=== PATIENT | female | born 1990 | race Caucasian/White ===

== ENCOUNTER 2018-06-26 11:12 | Emergency (ER) | payer SELFPAY ==
[~2018-06-26] VITALS: Ht 152.4 cm; Wt 87.1 kg
[2018-06-26 11:17] VITALS: BP 108/63
[2018-06-26 12:29] LABS: BASOPHILS # (AUTO) 0.1 K/uL (0.00-0.22); BASOPHILS % (AUTO) 0.6 % (0.0-2.0); EOSINOPHILS # (AUTO) 0.1 K/uL (0-0.4); EOSINOPHILS % (AUTO) 1.4 % (0.0-4.0); HEMATOCRIT 37.4 % (36-48); HEMOGLOBIN 12.6 g/dL (12.0-16.0); LYMPHOCYTES % (AUTO) 18.5 % (20.5-51.1); MEAN CORPUSCULAR HEMOGLOBIN 29 pg (27-31); MEAN CORPUSCULAR HGB CONC 34 g/dL (33-37); MEAN CORPUSCULAR VOLUME 86.8 fL (80-94); MONOCYTES # (AUTO) 0.6 K/uL (0.8-1.0); MONOCYTES % (AUTO) 5.8 % (1.7-9.3); NEUTROPHILS # (AUTO) 7.8 K/uL (1.8-7.7); NEUTROPHILS % (AUTO) 73.7 % (42.2-75.2); PLATELET COUNT (AUTO) 346 K/uL (140-450); RED CELL DISTRIBUTION WIDTH 13.7 % (11.6-13.7); WHITE BLOOD COUNT (AUTO) 10.6 K/uL (4.8-10.8)
[2018-06-26 12:39] LABS: ANION GAP 12.3 (8-16); CARBON DIOXIDE 25.6 mmol/L (21-32); CREATININE 0.6 mg/dL (0.6-1.3); POTASSIUM 3.9 mmol/L (3.5-5.1)
[2018-06-26 12:51] LABS: ALBUMIN 3.8 g/dL (3.4-5.0); TOTAL BILIRUBIN 0.5 mg/dL (0.0-1.0)
[2018-06-26 13:02] LABS: BILIRUBIN,URINE NEGATIVE (NEGATIVE); BLOOD, URINE 3+ (NEGATIVE); LEUKOCYTE ESTERASE ,URINE NEGATIVE (NEGATIVE); NITRITE, URINE NEGATIVE (NEGATIVE); UGLUCOSE NEGATIVE (NEGATIVE)
[2018-06-26 13:05] LABS: APPEARANCE,URINE HAZY (CLEAR); COLOR,URINE AMBER (YELLOW)
[2018-06-26 13:11] LABS: RBC,URINE 20-50 /HPF (0-5); WBC,URINE 0-5 (RARE) /HPF (0-5)
[2018-06-26 13:35] VITALS: BP 108/63
== END 2018-06-26 13:35 | disposition home or self-care (01) ==
LOC: MED 11:12
DX: O03.9 Complete or unspecified spontaneous abortion without complication (principal); Z3A.09 9 weeks gestation of pregnancy
CPT/HCPCS: 36415; 76801; 80053; 81001; 84702; 85025; 86900; 86901; 99285; Q0092

== ENCOUNTER 2023-01-23 20:24 | Emergency (ER) | payer OTHER ==
[~2023-01-23] VITALS: Ht 152.4 cm; Wt 90.7 kg
[2023-01-23 20:31] VITALS: BP 131/71
--- NOTE | 2023-01-24 00:30 | NUR ---
Dr. Skinner evaluating patient at this time
[2023-01-24 00:35] VITALS: BP 131/71
== END 2023-01-24 00:35 | disposition home or self-care (01) ==
LOC: MED 20:24
DX: R07.89 Other chest pain (principal); K30 Functional dyspepsia
CPT/HCPCS: 93005; 99283

== ENCOUNTER 2023-06-19 02:53 | Emergency (ER) | payer OTHER ==
[~2023-06-19] VITALS: Ht 149.9 cm; Wt 90.3 kg
[~2023-06-19 02:53] MED LIST: NAPR-1704 PO
[2023-06-19 03:00] VITALS: BP 111/72; PULSE 82; RESP 18; TEMP 97.7; O2SAT 99
[2023-06-19] MEDS ORDERED: diphenhydrAMINE 50 MG/ML VIAL IM ONE (03:05)
[2023-06-19 03:30] VITALS: O2SAT 99
[2023-06-19] MEDS ORDERED: FEXO180T82 PO (04:32)
== END 2023-06-19 03:30 | disposition home or self-care (01) ==
LOC: MED 02:53
DX: L50.9 Urticaria, unspecified (principal); Z79.899 Other long term (current) drug therapy; Z98.890 Other specified postprocedural states
CPT/HCPCS: 96372; 99283; J1200

== ENCOUNTER 2023-06-21 06:26 | Emergency (ER) | payer OTHER ==
[~2023-06-21] VITALS: Ht 149.9 cm; Wt 90.3 kg
[~2023-06-21 06:26] MED LIST changes: +FEXO180T82 PO
[2023-06-21 06:30] VITALS: BP 115/68; PULSE 74; RESP 17; TEMP 98; O2SAT 99
[2023-06-21] MEDS ORDERED: PRED20TA5 PO (06:41)
[2023-06-21] MEDS ORDERED: diphenhydrAMINE 50 MG/ML VIAL IM ONE (06:50)
[2023-06-21 07:05] VITALS: BP 115/68; PULSE 74; RESP 17; TEMP 98; O2SAT 99
== END 2023-06-21 07:05 | disposition home or self-care (01) ==
LOC: MED 06:26
DX: R21 Rash and other nonspecific skin eruption (principal); Z79.899 Other long term (current) drug therapy
CPT/HCPCS: 96372; 99283; J1200

== ENCOUNTER 2023-06-24 12:55 | Emergency (ER) | payer OTHER ==
[~2023-06-24] VITALS: Ht 149.9 cm; Wt 90.3 kg
[~2023-06-24 12:55] MED LIST changes: +PRED20TA5 PO
[2023-06-24 13:32] VITALS: BP 104/70; PULSE 73; RESP 15; TEMP 98.5; O2SAT 100
[2023-06-24 15:34] LABS: BASOPHILS % (AUTO) 0.1 % (0.0-2.0); EOSINOPHILS # (AUTO) 0.1 K/uL (0-0.4); EOSINOPHILS % (AUTO) 1.4 % (0.0-4.0); HEMATOCRIT 35.6 % (36-48); HEMOGLOBIN 12.2 g/dL (12.0-16.0); LYMPHOCYTES # (AUTO) 4.1 K/uL (2.5-16.5); LYMPHOCYTES % (AUTO) 39.2 % (20.5-51.1); MEAN CORPUSCULAR HEMOGLOBIN 29 pg (27-31); MEAN CORPUSCULAR HGB CONC 34 g/dL (33-37); MEAN CORPUSCULAR VOLUME 83.3 fL (80-94); MONOCYTES # (AUTO) 0.8 K/uL (0.8-1.0); MONOCYTES % (AUTO) 7.5 % (1.7-9.3); NEUTROPHILS # (AUTO) 5.5 K/uL (1.8-7.7); NEUTROPHILS % (AUTO) 51.8 % (42.2-75.2); PLATELET COUNT (AUTO) 370 K/uL (140-450); RED BLOOD CELL COUNT(AUTO) 4.27 MIL/uL (4.20-5.40); WHITE BLOOD COUNT (AUTO) 10.6 K/uL (4.8-10.8)
[2023-06-24 15:47] LABS: ANION GAP 9.4 (8-16); CALCIUM 9.1 mg/dL (8.5-10.1); CREATININE 0.6 mg/dL (0.6-1.3); POTASSIUM 3.4 mmol/L (3.5-5.1)
[2023-06-24 15:51] LABS: MAGNESIUM 2.1 mg/dL (1.8-2.4); PHOSPHORUS 4.8 mg/dL (2.5-4.9)
[2023-06-24] MEDS ORDERED: POTASSIUM CHLORIDE 10 MEQ TABER PO ONE (15:55)
[2023-06-24 17:03] VITALS: BP 102/53; PULSE 71; RESP 18; O2SAT 100
== END 2023-06-24 17:02 | disposition home or self-care (01) ==
LOC: MED 12:55
DX: L50.9 Urticaria, unspecified (principal); K21.9 Gastro-esophageal reflux disease without esophagitis; Z79.899 Other long term (current) drug therapy; Z79.1 Long term (current) use of non-steroidal anti-inflammatories (NSAID)
CPT/HCPCS: 36415; 80048; 81002; 81025; 83735; 84100; 85025; 99283

== ENCOUNTER 2023-09-12 02:45 | Emergency (ER) | payer OTHER ==
[~2023-09-12] VITALS: Ht 149.9 cm; Wt 93.9 kg
[2023-09-12 03:19] VITALS: BP 106/66; PULSE 81; RESP 18; TEMP 98.5; O2SAT 98
[2023-09-12] MEDS ORDERED: ONDANSETRON 4 MG ODT PO ONE (05:20)
[2023-09-12] MEDS ORDERED: KETOROLAC 60 MG/2 ML VIAL IM ONE (05:20)
[2023-09-12] MEDS ORDERED: IBUP-2213 PO (05:38)
[2023-09-12] MEDS ORDERED: ONDA8TAB87 PO (05:38)
== END 2023-09-12 05:47 | disposition home or self-care (01) ==
LOC: MED 02:45
DX: R10.13 Epigastric pain (principal); R11.0 Nausea; K21.9 Gastro-esophageal reflux disease without esophagitis; Z79.899 Other long term (current) drug therapy
CPT/HCPCS: 81002; 81025; 96372; 99283; J1885; Q0162

== ENCOUNTER 2023-10-05 12:59 | Emergency (ER) | payer OTHER ==
[~2023-10-05] VITALS: Ht 152.4 cm; Wt 72.6 kg
[~2023-10-05 12:59] MED LIST changes: +IBUP-2213 PO; +ONDA8TAB87 PO
[2023-10-05 14:01] VITALS: BP 109/75; PULSE 89; RESP 18; TEMP 98; O2SAT 98
[2023-10-05] MEDS ORDERED: ACET-10509 PO (14:26)
[2023-10-05] MEDS ORDERED: IBUP-1842 PO (14:26)
[2023-10-05] MEDS ORDERED: BENZ150C2 PO (14:26)
[2023-10-05] MEDS ORDERED: FLONAS NS (14:26)
[2023-10-05] MEDS ORDERED: AMOX875T3 PO (14:26)
== END 2023-10-05 15:15 | disposition home or self-care (01) ==
LOC: MED 12:59
DX: H66.91 Otitis media, unspecified, right ear (principal); Z86.73 Personal history of transient ischemic attack (TIA), and cerebral infarction without residual deficits; Z79.899 Other long term (current) drug therapy
CPT/HCPCS: 99283

== ENCOUNTER 2023-10-23 12:21 | Emergency (ER) | payer OTHER ==
[~2023-10-23] VITALS: Ht 149.9 cm; Wt 95.4 kg
[~2023-10-23 12:21] MED LIST changes: +ACET-10509 PO; +AMOX875T3 PO; +BENZ150C2 PO; +FLONAS NS; +IBUP-1842 PO
[2023-10-23 12:48] VITALS: BP 98/64; PULSE 78; RESP 20; TEMP 98; O2SAT 100
[2023-10-23] MEDS ORDERED: ONDANSETRON 4 MG ODT PO ONE (13:30)
[2023-10-23] MEDS ORDERED: MECLIZINE 25 MG TAB PO ONE (13:30)
[2023-10-23] MEDS ORDERED: diazePAM 5 MG TAB PO ONE (14:15)
[2023-10-23] MEDS ORDERED: MECL-303 PO (15:06)
== END 2023-10-23 15:14 | disposition home or self-care (01) ==
LOC: MED 12:21
DX: R42 Dizziness and giddiness (principal); R11.0 Nausea; K21.9 Gastro-esophageal reflux disease without esophagitis; Z79.899 Other long term (current) drug therapy
CPT/HCPCS: 93005; 99284; J8597; Q0162

== ENCOUNTER 2024-03-13 18:46 | Emergency (ER) | payer OTHER ==
[~2024-03-13] VITALS: Ht 149.9 cm; Wt 91.9 kg
[~2024-03-13 18:46] MED LIST changes: -BENZ150C2 PO; +BENZ150C7 PO; +MECL-303 PO
[2024-03-13 19:06] VITALS: BP 118/76; PULSE 72; RESP 18; TEMP 98; O2SAT 99
[2024-03-13 20:16] LABS: BASOPHILS % (AUTO) 0.5 % (0.0-2.0); EOSINOPHILS # (AUTO) 0.2 K/uL (0-0.4); EOSINOPHILS % (AUTO) 2.7 % (0.0-4.0); HEMATOCRIT 35.8 % (36-48); HEMOGLOBIN 12.1 g/dL (12.0-16.0); LYMPHOCYTES # (AUTO) 2.3 K/uL (2.5-16.5); MEAN CORPUSCULAR HEMOGLOBIN 28 pg (27-31); MEAN CORPUSCULAR HGB CONC 34 g/dL (33-37); MEAN CORPUSCULAR VOLUME 83.4 fL (80-94); MONOCYTES # (AUTO) 0.6 K/uL (0.8-1.0); MONOCYTES % (AUTO) 7.8 % (1.7-9.3); NEUTROPHILS # (AUTO) 4.7 K/uL (1.8-7.7); PLATELET COUNT (AUTO) 309 K/uL (140-450); RED BLOOD CELL COUNT(AUTO) 4.29 MIL/uL (4.20-5.40); RED CELL DISTRIBUTION WIDTH 14.2 % (11.6-13.7); WHITE BLOOD COUNT (AUTO) 7.9 K/uL (4.8-10.8)
[2024-03-13 20:31] VITALS: BP 109/65; PULSE 69; RESP 19
[2024-03-13 20:33] VITALS: O2SAT 100
[2024-03-13 20:34] LABS: ALANINE AMINOTRANSFERASE 33 U/L (12-78); ALKALINE PHOSPHATASE 76 U/L (50-136); ANION GAP 13.4 (8-16); ASPARTATE AMINOTRANSFERASE 19 U/L (15-37); CALCIUM 8.9 mg/dL (8.5-10.1); CARBON DIOXIDE 24.4 mmol/L (21-32); CHLORIDE 103 mmol/L (98-107); CREATININE 0.6 mg/dL (0.6-1.3); GFR ARICAN-AMERICAN 148 mL/min (>90); GFR NON ARICAN-AMERICAN 122 mL/min (>90); GLUCOSE 92 mg/dL (74-106); POTASSIUM 3.8 mmol/L (3.5-5.1); SODIUM SERUM 137 mmol/L (136-145); TOTAL BILIRUBIN 0.2 mg/dL (0.0-1.0); TOTAL PROTEIN, SERUM 7.9 g/dL (6.4-8.2); UREA NITROGEN, BLOOD 14 mg/dL (7-18)
[2024-03-13] MEDS ORDERED: IBUP-2213 PO (20:56)
[2024-03-13] MEDS ORDERED: HYDR25CA1 PO (20:56)
[2024-03-13 21:00] VITALS: O2SAT 100
== END 2024-03-13 21:08 | disposition home or self-care (01) ==
LOC: MED 18:46
DX: R42 Dizziness and giddiness (principal); R07.89 Other chest pain; R53.83 Other fatigue; K21.9 Gastro-esophageal reflux disease without esophagitis; Z79.1 Long term (current) use of non-steroidal anti-inflammatories (NSAID); Z79.2 Long term (current) use of antibiotics; Z79.899 Other long term (current) drug therapy
CPT/HCPCS: 36415; 71045; 80053; 84484; 85025; 93005; 99285; Q0092

== ENCOUNTER 2024-04-11 16:50 | Emergency (ER) | payer OTHER ==
[~2024-04-11] VITALS: Ht 149.9 cm; Wt 90.8 kg
[~2024-04-11 16:50] MED LIST changes: +HYDR25CA1 PO
[2024-04-11 17:06] VITALS: BP 109/61; PULSE 76; RESP 17; TEMP 98.1; O2SAT 99
[2024-04-11 19:11] LABS: BASOPHILS # (AUTO) 0.1 K/uL (0.00-0.22); BASOPHILS % (AUTO) 0.9 % (0.0-2.0); EOSINOPHILS # (AUTO) 0.2 K/uL (0-0.4); EOSINOPHILS % (AUTO) 1.8 % (0.0-4.0); HEMATOCRIT 38.6 % (36-48); HEMOGLOBIN 13.1 g/dL (12.0-16.0); LYMPHOCYTES # (AUTO) 2.9 K/uL (2.5-16.5); LYMPHOCYTES % (AUTO) 31.3 % (20.5-51.1); MEAN CORPUSCULAR HEMOGLOBIN 28 pg (27-31); MEAN CORPUSCULAR HGB CONC 34 g/dL (33-37); MEAN CORPUSCULAR VOLUME 83.2 fL (80-94); MONOCYTES # (AUTO) 0.6 K/uL (0.8-1.0); MONOCYTES % (AUTO) 6.9 % (1.7-9.3); NEUTROPHILS # (AUTO) 5.4 K/uL (1.8-7.7); NEUTROPHILS % (AUTO) 59.1 % (42.2-75.2); PLATELET COUNT (AUTO) 157 K/uL (140-450); RED BLOOD CELL COUNT(AUTO) 4.63 MIL/uL (4.20-5.40); RED CELL DISTRIBUTION WIDTH 14.2 % (11.6-13.7); WHITE BLOOD COUNT (AUTO) 9.1 K/uL (4.8-10.8)
[2024-04-11 19:13] LABS: ANION GAP 12.9 (8-16); CALCIUM 9.5 mg/dL (8.5-10.1); CARBON DIOXIDE 26.6 mmol/L (21-32); CREATININE 0.6 mg/dL (0.6-1.3); POTASSIUM 3.5 mmol/L (3.5-5.1)
[2024-04-11 19:35] LABS: ALANINE AMINOTRANSFERASE 43 U/L (12-78); ALKALINE PHOSPHATASE 78 U/L (50-136); ASPARTATE AMINOTRANSFERASE 27 U/L (15-37); BILIRUBIN,DIRECT 0.1 mg/dL (0.0-0.3); THYROID STIMULATING HORMONE 1.19 uIU/mL (0.34-3.74); TOTAL BILIRUBIN 0.4 mg/dL (0.0-1.0); TOTAL PROTEIN, SERUM 8.5 g/dL (6.4-8.2)
[2024-04-11 19:39] LABS: ALBUMIN < 3.4 g/dL (3.4-5.0)
[2024-04-11] MEDS ORDERED: FAMO-92 PO (21:39)
[2024-04-11 21:47] VITALS: BP 115/65; PULSE 74; RESP 18; TEMP 98; O2SAT 99
== END 2024-04-11 21:47 | disposition home or self-care (01) ==
LOC: MED 16:50
DX: R13.10 Dysphagia, unspecified (principal); K21.9 Gastro-esophageal reflux disease without esophagitis; Z79.1 Long term (current) use of non-steroidal anti-inflammatories (NSAID); Z79.2 Long term (current) use of antibiotics; Z79.899 Other long term (current) drug therapy
CPT/HCPCS: 36415; 70360; 80048; 80076; 81002; 81025; 84443; 85025; 99284

== ENCOUNTER 2024-06-23 23:05 | Emergency (ER) | payer OTHER ==
[~2024-06-23] VITALS: Ht 149.9 cm; Wt 92.5 kg
[~2024-06-23 23:05] MED LIST changes: -ACET-10509 PO; +ACET500T99 PO; +FAMO-92 PO
[2024-06-23 23:21] VITALS: BP 117/73; PULSE 92; RESP 18; TEMP 99.7; O2SAT 99
[2024-06-23] MEDS: KETOROLAC 60 MG/2 ML VIAL IM ONE (23:48)
[2024-06-23] MEDS ORDERED: ACET-8905 PO (23:55)
[2024-06-24 00:20] VITALS: BP 117/73; PULSE 92; RESP 18; TEMP 99.7; O2SAT 99
== END 2024-06-24 00:20 | disposition home or self-care (01) ==
LOC: MED 23:05
DX: S91.302A Unspecified open wound, left foot, initial encounter (principal); R50.9 Fever, unspecified; K21.9 Gastro-esophageal reflux disease without esophagitis; Z98.890 Other specified postprocedural states; Z79.899 Other long term (current) drug therapy; X58.XXXA Exposure to other specified factors, initial encounter; Y92.89 Other specified places as the place of occurrence of the external cause; Y93.89 Activity, other specified; Y99.8 Other external cause status
CPT/HCPCS: 96372; 99283; J1885